=== PATIENT | male | born 1940 | race Caucasian/White ===

== ENCOUNTER 2018-01-22 08:16 | Day surgery (SDC) | payer MEDICARE, BC ==
[~2018-01-22] VITALS: Ht 168.9 cm; Wt 64.9 kg
[2018-01-22] MEDS ORDERED: LIDOCAINE HCL 2% JELLY 5ML ONE (09:49)
[2018-01-22] MEDS ORDERED: TETRACAINE/BENZOCAINE/BUTAMBEN 20 GM SPRAY MM ONE (09:49)
[2018-01-22] MEDS ORDERED: POTA10TA19 PO (10:02)
[2018-01-22] MEDS ORDERED: FURO40TA5 PO (10:02)
[2018-01-22] MEDS ORDERED: SOTA80TA PO (10:02)
[2018-01-22] MEDS ORDERED: LISI2.5T47 PO (10:02)
[2018-01-22] MEDS ORDERED: APIX5TAB PO (10:02)
[2018-01-22] MEDS ORDERED: FENTANYL CITRATE/PF 50MCG/ML 2ML VIAL ONE ×2 (10:08→10:23)
[2018-01-22] MEDS ORDERED: MIDAZOLAM HCL 5 MG/5 ML VIAL ONE (10:08)
[2018-01-22] MEDS ORDERED: MIDAZOLAM HCL 2 MG/2 ML VIAL ONE (10:24)
== END 2018-01-22 13:00 | disposition home or self-care (01) ==
LOC: CARD 08:16
PROVIDERS: ATTEND Specialist
DX: I48.1 Persistent atrial fibrillation (principal); I08.0 Rheumatic disorders of both mitral and aortic valves; I11.9 Hypertensive heart disease without heart failure; E78.5 Hyperlipidemia, unspecified; I25.2 Old myocardial infarction; Z79.899 Other long term (current) drug therapy
CPT/HCPCS: 92960; 93005; 93312; J2250; J3010

== ENCOUNTER 2018-06-19 08:21 | Day surgery (SDC) | payer MEDICARE, BC ==
[~2018-06-19] VITALS: Ht 168.9 cm; Wt 64.8 kg
[~2018-06-19 08:21] MED LIST: APIX5TAB PO; FURO40TA5 PO; LISI2.5T47 PO; POTA10TA19 PO; SOTA80TA PO
[2018-06-19] MEDS ORDERED: TETRACAINE/BENZOCAINE/BUTAMBEN 20 GM SPRAY MM ONE (09:34)
[2018-06-19] MEDS ORDERED: FENTANYL CITRATE/PF 50MCG/ML 2ML VIAL ONE ×2 (09:34→10:03)
[2018-06-19] MEDS ORDERED: MIDAZOLAM HCL 5 MG/5 ML VIAL ONE (09:34)
[2018-06-19] MEDS ORDERED: LIDOCAINE HCL 2% JELLY 5ML ONE (09:37)
[2018-06-19] MEDS ORDERED: MIDAZOLAM HCL 2 MG/2 ML VIAL ONE (10:04)
[2018-06-19] MEDS ORDERED: ONDANSETRON HCL 4MG/2ML INJ IV PRN (10:15)
[2018-06-19] MEDS ORDERED: ATROPINE SULFATE 1MG/10ML SYR IV PRN (10:15)
[2018-06-19] MEDS ORDERED: ACETAMINOPHEN 325MG TABLET PO PRN (10:15)
== END 2018-06-19 13:15 | disposition home or self-care (01) ==
LOC: CARD 08:21
PROVIDERS: ATTEND Specialist
DX: I48.1 Persistent atrial fibrillation (principal); R73.9 Hyperglycemia, unspecified; I10 Essential (primary) hypertension; E78.5 Hyperlipidemia, unspecified; I45.10 Unspecified right bundle-branch block; Z79.01 Long term (current) use of anticoagulants; Z79.899 Other long term (current) drug therapy; Z95.0 Presence of cardiac pacemaker
CPT/HCPCS: 92960; 93312; J2250; J3010; 99152; 99153; G0500

== ENCOUNTER → 2019-11-11 | Day surgery (SDC) | payer MEDICARE, BC ==
[~2019-11-11] VITALS: Ht 170.2 cm; Wt 67.1 kg
[~2019-11-11] MED LIST changes: +ACETAMINOPHEN 325MG TABLET PO PRN; +FENTANYL CITRATE/PF 50MCG/ML 2ML VIAL ONE; +MIDAZOLAM HCL 5 MG/5 ML VIAL ONE; +ONDANSETRON HCL 4MG/2ML INJ IV PRN
== END | disposition home or self-care (01) ==
LOC: CARD 06:42
PROVIDERS: ATTEND Specialist
DX: I48.0 Paroxysmal atrial fibrillation (principal); I25.10 Atherosclerotic heart disease of native coronary artery without angina pectoris; I11.9 Hypertensive heart disease without heart failure; I49.5 Sick sinus syndrome; I05.1 Rheumatic mitral insufficiency; I73.00 Raynaud's syndrome without gangrene; E11.65 Type 2 diabetes mellitus with hyperglycemia; E78.5 Hyperlipidemia, unspecified; Z95.0 Presence of cardiac pacemaker; Z79.899 Other long term (current) drug therapy; Z79.01 Long term (current) use of anticoagulants; Z82.49 Family history of ischemic heart disease and other diseases of the circulatory system; Z98.890 Other specified postprocedural states
CPT/HCPCS: 92960; 93005; J2250; J3010